=== PATIENT | female | born 1945 | race Caucasian/White ===

== ENCOUNTER → 2017-07-20 | Outpatient (CLI) | payer OTHER | LOC: FIMAGING 12:18 | PROVIDERS: ATTEND Internal Medicine | DX: Z13.820 Encounter for screening for osteoporosis (principal); M85.89 Other specified disorders of bone density and structure, multiple sites; Z78.0 Asymptomatic menopausal state ==

== ENCOUNTER → 2017-07-26 | Outpatient (CLI) | payer OTHER | LOC: FIMAGING 13:06 | PROVIDERS: ATTEND Internal Medicine | DX: Z12.31 Encounter for screening mammogram for malignant neoplasm of breast (principal) ==

== ENCOUNTER → 2018-02-11 | Outpatient (CLI) | payer OTHER | END | disposition home or self-care (01) | LOC: FLAB 11:10 | PROVIDERS: ATTEND Registered Nurse | DX: R91.8 Other nonspecific abnormal finding of lung field (principal); R61 Generalized hyperhidrosis; R53.83 Other fatigue; R63.0 Anorexia; G47.00 Insomnia, unspecified ==

== ENCOUNTER 2018-03-14 18:12 | Emergency (ER) | payer OTHER ==
--- NOTE | 2018-03-14 18:30 | EDPHY ---
General Time Seen by Provider: 03/14/18 18:29 Narrative: CLINICAL IMPRESSION: Fall, head contusion, sacrum fracture ASSESSMENT/PLAN: Patient is a 72-year-old female with a history of hypertension, hyperlipidemia, bladder incontinence and SHEILA who presents to the emergency department after sustaining a slip and fall on the ice complaining of posterior head pain, sacrum pain and left hip pain. Patient did hit her head however there was no LOC. Patient is uncomfortable appearing however not toxic-appearing. Her high sensitivity neuro examination is intact, no significant red flags. CT head reveals soft tissue contusion on the posterior occiput without evidence of skull fracture or intracranial hemorrhage. Cervical spine CT with no acute findings. Lumbar CT with chronic DDD without acute fracture or subluxation. Pelvis CT with findings suggestive of acute S4 fracture, no evidence of pelvic fracture or pelvic hematoma. Physical examination today is consistent with head contusion and sacral fracture. She had no saddle paresthesias, lower extremity numbness, tingling, major motor weakness, urinary retention or bowel/bladder incontinence. No indication for emergent MRI. There were no clinical findings to suggest skull fracture, ICH, cauda equina syndrome, epidural abscess/hematoma, epidural compression syndrome, AAA, dissection or additional emergent process. Patient was given single dose of Dilaudid and a Lidoderm patch was placed while in the ED with improvement of her pain. She is well established with her PCP and has already called to schedule follow-up. On repeat exam and prior to discharge that patient is able to ambulate independently, her mobility improved and her neurological exam was grossly normal with no focal deficit. She reports feeling better. Strict return precautions discussed- she will return for increased or unmanageable pain, new injury, new midline back pain, numbness, tingling, weakness of legs, loss of bowel or bladder control, saddle paresthesia , urinary retention, loss of bowel or bladder control, difficulty walking or for any other new, worsening or worrisome symptoms. Patient verbalizes understanding and she is in agreement with plan. DIFFERENTIAL DX: Head injury, ICH, fracture, dislocation, cauda equina, long bone injury ED COURSE: 1937: Discussed case with radiologist, CT head reveals no evidence of intracranial hemorrhage or skull fracture, soft tissue contusion along the occiput. C-spine negative for acute fracture subluxation, degenerative disc disease. Lumbar CT with severe degenerative changes however no acute findings of the lumbar spine, there is a small buckle S3-S4 consistent with an acute fracture. No evidence of pelvic fracture. 2005: Discussed case, results and plan of care with Dr. Soriano CHIEF COMPLAINT: Fall, Head injury, sacral pain, left hip pain HPI: Patient is a 72-year-old female with a significant history of hypertension, hyperlipidemia, stress incontinence and SHEILA who presents to the emergency department after sustaining a fall on the ice. Patient reports a little after 2 :00 p.m. this afternoon she slipped causing her to fall directly onto her sacrum as well as hitting her head. She did not lose consciousness. She denies being on aspirin, other antiplatelet therapy or anticoagulation. She presents complaining of pain at site of impact on posterior scalp, pain to coccyx and left hip pain. She has been able to ambulate however this does increase her pain, sitting also exacerbates her pain. She denies saddle paresthesia, motor weakness, numbness/tingling of extremities, urinary retention or loss of bowel or bladder control. She has had no severe VILLAGOMEZ, dizziness, visual changes, amnesia, vomiting or post traumatic seizure. PMH: HTN, HLP, SHEILA, stress incontinence Family History: Not contributory Social History: Denies REVIEW OF SYSTEMS: All other systems negative Constitutional: No fever, no chills, appetite change. Eyes: No discharge, vision change. ENT: No sore throat, congestion, ear pain. Cardiovascular: No chest pain, no palpitations. Respiratory: No cough, no shortness of breath. Gastrointestinal: No abdominal pain, no vomiting, diarrhea. Genitourinary: No hematuria, dysuria, flank pain, pelvic pain. Musculoskeletal: Back pain, left hip pain. No joint swelling or myalgias. Skin: No rashes, color change. Neurological: Head pain. No dizziness, weakness. PHYSICAL EXAM: General Appearance: Well-developed, uncomfortable appearing however not toxic- appearing. HENT: Normocephalic, atraumatic. Patient tender posterior occiput without open wound, hematoma crepitus or bony deformity. Bilateral external ears are normal. Bilateral tympanic membranes are normal with pearly hay reflex, no hemotympanum bilaterally. No sanches sign or raccoon eyes. Nares are clear, mucosa is pink. Oropharynx is clear, uvula is midline. There is no tonsillar enlargement or exudate. The dentition is normal. Eyes: PERRLA, no acute vision change, nystagmus, swelling, discharge, pain or photosensitivity. Conjunctiva pink, no pallor or injection. Neck: Supple, nontender, no lymphadenopathy, no midline pain, FROM, no meningismus. Respiratory: There are no retractions, lungs are clear to auscultation. Cardiac: Regular rate and rhythm, no murmurs or gallops. Gastrointestinal: Abdomen is soft, nontender, bowel sounds normal, no masses/ hernia, no rigidity, guarding or focal peritoneal findings. Neurological: Alert and oriented x 3, CN 2-12 grossly intact, normal gait no ataxia, DTR's intact, normal sensation and strength. Skin: Warm, dry, no rashes, no nodules on palpation. Musculoskeletal: Extremities are symmetrical, full range of motion, no tenderness, deformity, swelling, or erythema. Back: No step-off, palpable bony abnormality, edema, erythema or ecchymosis of the cervical, thoracic or lumbar spines. Patient is tender to palpation in the mid lumbar region as well as sacrum and coccyx, no ecchymosis or abrasions. Limited ROM of lumbar spine due to pain. 5/5 and equal strength of the UEs and LEs bilaterally including shoulder shrug. Pulses: 2+ and equal radial, DP and PT pulses bilaterally. Sensation intact and symmetric to light touch from face, UEs and LEs bilaterally. Straight leg raise negative bilaterally. Pelvis is stable, I am unable to reproduce any tenderness to palpation of left hip, full ROM. Lumbar pain L1: inner thigh sensation- no deficit L2: ADduct thigh (cross legs)- no deficit L3: Extend knee- no deficit L4: Ankle dorsiflexion- no deficit L5: Great toe extension- no deficit S1: Flex knee- no deficit S3-4: bladder/bowel function- no dysfunction HSNE- no deficit Psychiatric: Patient is oriented X 3, there is no agitation. MEDICAL DECISION MAKING: Patient was seen independently. Secondary supervising physician at time of evaluation was Dr. Soriano. Diagnosis: Head contusion, sacral fracture. New, requires workup Summary: See Assessment and Plan for summary of ED visit Clinical lab tests: N/A. Independent visualization of images, tracing, or specimens: Yes. Decision to obtain medical records or history from someone other than the patient: Yes, neighbor Review / Summarize previous medical records: Yes Discussed patient with another provider: Yes, Dr. Soriano. Patient Progress: Stable, discharge. - History Smoking Status: Never smoked - Objective Vital Signs: Initial Vital Signs Temperature (C) 36.6 C 03/14/18 18:17 Heart Rate 107 H 03/14/18 18:17 Respiratory Rate 18 03/14/18 18:17 Blood Pressure 186/83 H 03/14/18 18:17 O2 Sat (%) 93 03/14/18 18:17 O2 Delivery Mode Room Air Allergies/Adverse Reactions: Sulfa (Sulfonamide Antibiotics) Allergy (Verified 03/14/18 18:17) Home Medications: Medication Instructions Recorded Famotidine [Pepcid 20 MG (OTC)] 20 mg PO BID #30 tab 04/02/13 Simvastatin 04/02/13 diphenhydrAMINE [Benadryl 50 MG 50 mg PO Q4-6PRN PRN #30 cap 04/02/13 (OTC)] epINEPHrine [Epipen] 0.3 mg IM ONCE #2 syr 04/02/13 methylPREDNISolone [Medrol Dose 1 each PO AD #1 ea 04/02/13 Frank] Lidocaine [Lidocaine Pain Relief] 1 each TP DAILY PRN #6 adh..patch 03/14/18 Medications Given: Discontinued Medications Hydrocodone Bitart/Acetaminophen ([place] 5/325) 1 tab PO EDNOW ONE Stop: 03/14/18 20:17 Last Admin: 03/14/18 20:22 Dose: 1 tab Hydrocodone Bitart/Acetaminophen ([place] 5/325mg Prepack#6) 1 btl TAKEHOME EDNOW ONE Stop: 03/14/18 20:18 Last Admin: 03/14/18 20:24 Dose: 1 btl Hydromorphone HCl (Dilaudid) 0.5 mg IVP EDNOW ONE Stop: 03/14/18 18:40 Last Admin: 03/14/18 19:38 Dose: 0.5 mg Miscellaneous Information (Patch Removal) 1 ea TD DAILY21 JANNA Stop: 09/10/18 20:59 Last Admin: 03/14/18 21:54 Dose: 1 ea Miscellaneous Medication (Icy Hot Lidocaine/Menthol 4%/1% Patch) 1 patch TD EDNOW ONE Stop: 03/14/18 20:03 Last Admin: 03/14/18 20:25 Dose: 1 patch Ondansetron HCl (Zofran Odt) 4 mg PO EDNOW ONE Stop: 03/14/18 21:32 Last Admin: 03/14/18 21:37 Dose: 4 mg Ondansetron HCl (Zofran Odt 4 Mg Prepack#2) 1 btl TAKEHOME EDNOW ONE Stop: 03/14/18 21:32 Last Admin: 03/14/18 21:54 Dose: 1 btl Departure - Departure Disposition: Home, Routine, Self-Care Clinical Impression: Sacrum and coccyx fracture Condition: Good Instructions: Hydrocodone/Acetaminophen (By mouth), Ondansetron (By mouth), Sacral Fracture (ED) Additional Instructions: DISCHARGE INSTRUCTIONS FROM YOUR DOCTOR Thank you for visiting our emergency department today. Please keep in mind that discharge from the emergency department does not mean that there is nothing wrong - it simply means that we have not identified an emergency condition that requires further evaluation or treatment in the hospital. You should always plan to follow up with primary care for re-evaluation of your condition in the next 2-[address], C-spine CT were both negative for acute findings. Your lumbar CT revealed no evidence of lumbar fracture. Your pelvis CT revealed an acute fracture of S4, no pelvic fracture identified. You have been prescribed [place] which is a narcotic. Please do not drive or operate machinery while taking this medication as it may make you drowsy. It may also be habit forming. This medication can also cause constipation, recommend taking 100 mg of Colace twice daily while taking this medication. This medication also contains Tylenol, please do not take other Tylenol containing products with this medication. When you are not taking [place] in for less severe pain you may take Tylenol, recommend 500-1000 mg every 6-8 hours. Do not exceed 3000 mg in a 24 hr period. It is important that you cushion your buttocks when you sit, I recommend you purchasing a doughnut pillow for comfort. Rest. Avoid lifting greater than 10-15 pounds. Avoid twisting or prolonged sitting. Movement and gentle walking is good for your back. Try to walk for 15-10 minutes on an even surface 3 or 4 times a day as tolerated and increase gentle exercise as your back improves. Salonpas is a topical pain patch, apply this if this helps you. You may purchase [id number] to pharmacy, follow instructions on the packaging. Apply ice to the area that hurts you most, 20 min on and 20 min off. People present with illnesses and injuries in different ways, and it is always possible that we have missed something. You may always return for re-evaluation if symptoms worsen or if they are not improving or if you develop new/different symptoms. Return for increased or unmanageable pain, new injury, new midline back pain, numbness, tingling, weakness of your legs, loss of bowel or bladder control, inability to urinate, burning or pain with urination, blood in the urine, fever , chills, abdominal pain, vomiting, difficulty walking, dizziness, fainting, chest pain, shortness of breath, neck pain, neck stiffness, other site of back pain, calf pain, leg redness or swelling, or for any other new, worsening or worrisome symptoms. Again, thank you for choosing our emergency department. We hope that you feel better. Referrals: Bertha Whittaker MD [Primary Care Provider] - 1 day without fail Prescriptions: Lidocaine [Lidocaine Pain Relief] 1 each TP DAILY PRN #6 adh..patch PRN Reason: Pain, Moderate
[2018-03-14] MEDS ORDERED: HYDROmorphONE/DILAUDID 2 MG/ML INJ IVP ONE (18:39)
[2018-03-14] MEDS ORDERED: LIDOCAINE 4%/MENTHOL 1% PATCH TD ONE (20:02)
[2018-03-14] MEDS ORDERED: HYDROCODONE/APAP 5/325 TAB PO ONE (20:16)
[2018-03-14] MEDS ORDERED: HYDROCOD/APAP 5/325 PREPACK#6 BTL TAKEHOME ONE (20:17)
[2018-03-14 20:35] VITALS: BP 167/79
[2018-03-14] MEDS ORDERED: PATCH REMOVAL 1 EA PATCH TD SCH (21:00)
[2018-03-14] MEDS ORDERED: ONDANSETRON 4MG PREPACK#2 BTL TAKEHOME ONE (21:31)
[2018-03-14] MEDS ORDERED: ONDANSETRON DISINTEGRATING 4 MG TAB PO ONE (21:31)
== END 2018-03-14 21:58 | disposition home or self-care (01) ==
DX: S32.19XA Other fracture of sacrum, initial encounter for closed fracture (principal); S00.03XA Contusion of scalp, initial encounter; W00.0XXA Fall on same level due to ice and snow, initial encounter; M48.02 Spinal stenosis, cervical region; M50.30 Other cervical disc degeneration, unspecified cervical region; I10 Essential (primary) hypertension; E78.5 Hyperlipidemia, unspecified; G47.33 Obstructive sleep apnea (adult) (pediatric); N39.3 Stress incontinence (female) (male); Z88.2 Allergy status to sulfonamides
CPT/HCPCS: 70450; 72125; 72131; 72192; 96374; 99285; J1170

== ENCOUNTER 2018-06-06 12:41 | Day surgery (SDC) | payer OTHER ==
[2018-06-06 12:58] VITALS: BP 132/93
--- NOTE | 2018-06-06 13:40 | EDPHY ---
H & P Stated Complaint: sent from [facility] Seen by Provider: 06/06/18 13:02 HPI/ROS: CHIEF COMPLAINT: Chest pain HISTORY OF PRESENT ILLNESS: 72-year-old female with hypertension and hyperlipidemia presents with chest pain. He several month history exertional shortness of breath and chest pressure. The chest discomfort usually resolves when she stops exercising. However the chest discomfort also occurs randomly. ETT stress test today revealed ST segment depression and chest pain after 4 min of exertion. Plan is for cardiac catheterization this afternoon. REVIEW OF SYSTEMS: complete 10 point ROS reviewed and is negative except for the noted elements in the HPI - Personal History Current Tetanus/Diphtheria Vaccine: Yes Current Tetanus Diphtheria and Acellular Pertussis (TDAP): Yes - Medical/Surgical History Hx Asthma: No Hx Chronic Respiratory Disease: No Hx Diabetes: No Hx Cardiac Disease: No Hx Renal Disease: No Hx Cirrhosis: No Hx Alcoholism: No Hx HIV/AIDS: No Hx Splenectomy or Spleen Trauma: No Other PMH: R hip replace, L4-5 Sx, - Social History Smoking Status: Never smoked - Physical Exam Exam: General Appearance: Alert, pleasant Eyes: Pupils equal and round, no conjunctival pallor or injection ENT, Mouth: Mucous membranes moist Neck: Normal inspection Respiratory: Lungs are clear to auscultation Cardiovascular: Regular rate and rhythm Gastrointestinal: Abdomen is soft and nontender Neurological: A&O, nonfocal, normal gait Skin: Warm and dry Extremities: Nontender, no pedal edema Psychiatric: Mood and affect normal Constitutional: Initial Vital Signs Temperature (C) 36.8 C 06/06/18 12:56 Heart Rate 77 06/06/18 12:56 Respiratory Rate 16 06/06/18 12:56 Blood Pressure 132/93 H 06/06/18 12:56 O2 Sat (%) 96 06/06/18 12:56 Allergies/Adverse Reactions: Sulfa (Sulfonamide Antibiotics) Allergy (Verified 03/14/18 18:17) Home Medications: Medication Instructions Recorded Famotidine [Pepcid 20 MG (OTC)] 20 mg PO BID #30 tab 04/02/13 Simvastatin 04/02/13 diphenhydrAMINE [Benadryl 50 MG 50 mg PO Q4-6PRN PRN #30 cap 04/02/13 (OTC)] epINEPHrine [Epipen] 0.3 mg IM ONCE #2 syr 04/02/13 methylPREDNISolone [Medrol Dose 1 each PO AD #1 ea 04/02/13 Frank] Lidocaine [Lidocaine Pain Relief] 1 each TP DAILY PRN #6 adh..patch 03/14/18 Medical Decision Making ED Course/Re-evaluation: This patient presents with chest pain and abnormal stress test. She was asymptomatic throughout her emergency department stay. EKG from prior to arrival reviewed and reveals no evidence of ischemia or dysrhythmia. Troponin is normal. She was seen by Dr. Frankel in the ED. Went directly to the cardiac catheterization lab. Differential Diagnosis: Differential diagnosis includes though it is not limited to pneumonia, pneumothorax, pulmonary embolism, aortic dissection, pericarditis, acute coronary syndrome. - Data Points Laboratory Results: Laboratory Results 06/06/18 13:15 06/06/18 06/06/18 06/06/18 13:21 13:15 13:15 WBC RBC Hgb Hct MCV MCH MCHC RDW Plt Count MPV Neut % (Auto) Lymph % (Auto) Luna % (Auto) Eos % (Auto) Baso % (Auto) Nucleat RBC Rel Count Absolute Neuts (auto) Absolute Lymphs (auto) Absolute Monos (auto) Absolute Eos (auto) Absolute Basos (auto) Absolute Nucleated RBC Immature Gran % Immature Gran # PT 12.0 SEC SEC (12.0-15.0) INR 0.92 (0.83-1.16) Sodium 141 mEq/L mEq/L (135-145) Potassium 4.2 mEq/L mEq/L (3.5-5.2) Chloride 108 mEq/L mEq/L (97-110) Carbon Dioxide 20 mEq/l L mEq/l (22-31) Anion Gap 13 mEq/L mEq/L (6-14) BUN 11 mg/dL mg/dL (7-23) Creatinine 0.6 mg/dL mg/dL (0.6-1.0) Estimated GFR > 60 Glucose 97 mg/dL mg/dL (70-100) Calcium 10.0 mg/dL mg/dL (8.5-10.4) Total Bilirubin 0.7 mg/dL mg/dL (0.1-1.4) AST 33 IU/L IU/L (14-46) ALT 41 IU/L IU/L (9-52) Alkaline Phosphatase 98 IU/L IU/L (38-126) POC Troponin I 0.00 ng/mL ng/mL (0.00-0.08) Total Protein 8.1 g/dL g/dL (6.3-8.2) Albumin 5.0 g/dL g/dL (3.5-5.0) 06/06/18 13:15 WBC Pending RBC Pending Hgb Pending Hct Pending MCV Pending MCH Pending MCHC Pending RDW Pending Plt Count Pending MPV Pending Neut % (Auto) Pending Lymph % (Auto) Pending Luna % (Auto) Pending Eos % (Auto) Pending Baso % (Auto) Pending Nucleat RBC Rel Count Pending Absolute Neuts (auto) Pending Absolute Lymphs (auto) Pending Absolute Monos (auto) Pending Absolute Eos (auto) Pending Absolute Basos (auto) Pending Absolute Nucleated RBC Pending Immature Gran % Pending Immature Gran # Pending PT INR Sodium Potassium Chloride Carbon Dioxide Anion Gap BUN Creatinine Estimated GFR Glucose Calcium Total Bilirubin AST ALT Alkaline Phosphatase POC Troponin I Total Protein Albumin Point of Care Test Results: Chemistry 06/06/18 13:21 POC Troponin I 0.00 ng/mL ng/mL (0.00-0.08) Departure - Departure Disposition: To OP Cath/Surgery Clinical Impression: Chest pain Qualifiers: Chest pain type: precordial pain Qualified Code(s): R07.2 - Precordial pain Condition: Fair Referrals: Patient,NotPresent [Primary Care Provider] - As per Instructions
[2018-06-06 13:58] LABS: INR 0.92 (0.83-1.16)
[2018-06-06] MEDS ORDERED: LIDOCAINE 1% 300 MG/30 ML SDV ONE (14:06)
[2018-06-06] MEDS ORDERED: MIDAZOLAM 2 MG/2 ML VIAL ONE ×2 (14:07)
[2018-06-06] MEDS ORDERED: fentaNYL 100 MCG/2 ML INJ ONE (14:07)
[2018-06-06] MEDS ORDERED: IOPAMIDOL (ISOVUE-370) 150 ML BTL IV ONE (14:07)
[2018-06-06] MEDS ORDERED: ASPIRIN 81 MG CHEWABLE TAB ONE (14:34)
--- NOTE | 2018-06-06 14:52 | CPEKG ---
Test Reason : OPEN Blood Pressure : / mmHG Vent. Rate : 081 BPM Atrial Rate : 082 BPM P-R Int : 158 ms QRS Dur : 076 ms QT Int : 387 ms P-R-T Axes : 024 011 -14 degrees QTc Int : 450 ms Sinus rhythm Probable left atrial enlargement Left ventricular hypertrophy Borderline T abnormalities, inferior leads Confirmed by Yesi Mendez ([id number]) on 06/06/2018 2:51:43 PM Referred By: YESI MENDEZ Confirmed By:Yesi Mendez
[2018-06-06 15:28] LABS: PLATELET COUNT 287 10^3/uL (150-400)
--- NOTE | 2018-06-06 21:40 | CPIP ---
[f rep st] INVASIVE CARDIAC PROCEDURE DATE OF PROCEDURE: 06/06/2018 PROCEDURE: 1. Coronary angiography. 2. Left ventriculography. 3. Right heart catheterization. INDICATION: 1. Dyspnea. 2. Chest pain concerning for an anginal equivalent. 3. Abnormal exercise tolerance test. ACCESS: Patient was prepped and draped in sterile fashion. 1% lidocaine was used to anesthetize the right inguinal region. A 6-[place] introducer sheath was placed selectively in the right common femo ral artery via modified Seldinger technique. A 7-[place] introducer sheath was placed selectively in the right common femoral vein via modified Seldinger technique. CORONARY ANGIOGRAPHY: A 6-[place] JL4 was advanced to left main coronary artery and images obtained. The left main coronary artery bifurcated into an LAD and circumflex coronary arteries. The left edwin n coronary artery appeared free of any significant disease. The left anterior descending coronary ar lenny gave rise to 2 prominent diagonal branches. The left anterior descending coronary artery had mi ld diffuse disease throughout. In the mid 1 segment of the vessel, there was a discrete 20% stenosis present. In the mid 2 segment, there was a long segmental 30% stenosis present. The diagonal arter ies were free of any significant disease. The circumflex coronary artery was a moderate-sized vessel . The circumflex coronary artery had mild luminal irregularities throughout. There was no stenosis greater than 10%. The circumflex coronary artery gave rise to 2 OM branches. The OM branches were f ree of any significant disease. A 6-[place] JR4 was advanced to the right coronary artery and images obtained. The right coronary artery was a large vessel. The right coronary artery is dominant. The right coronary artery had sequential 20% stenosis in the mid vessel. LEFT VENTRICULOGRAPHY: A 6-[place] pigtail catheter was advanced in the left ventricle and images obt ained. Left ventricle is normal size and normal systolic function. Estimated ejection fraction 65%. RIGHT HEART CATHETERIZATION: The Ramona-Rossi catheter was advanced in the right atrium and pressure an d sat obtained. The right atrial pressure was 4 mmHg. The saturation was 83.2. Catheter was then a dvanced in the right ventricle and pressure and sat obtained. The right ventricular pressure was 43/ 7 and the saturation was 81.2%. Catheter was then advanced in the pulmonary artery position and pres sure obtained. The pulmonary artery pressure was 35 mmHg over 12 mmHg with a mean pressure of 21 mmH g. The pulmonary artery saturation was 81.9%. Catheter was then advanced in the wedge position and pressure obtained. Pulmonary capillary wedge pressure was 12 mmHg. Catheter was used to obtain an I VC sat as well as an SVC sat. The IVC sat was 84.4. The SVC sat was 82.8. Cardiac output was 5.34. Cardiac index 3.13. COMPLICATIONS: None. CONCLUSIONS: 1. Mild coronary artery disease without flow limitation. 2. Normal left ventricular size and systolic function. 3. No evidence of pulmonary hypertension with a mean pulmonary artery pressure of 21 mmHg. 4. Normal pulmonary capillary wedge pressure of 12 mmHg. /[id number]/MODL
== END 2018-06-06 18:50 | disposition home or self-care (01) ==
LOC: FIMAGING 12:41 → EDSTATUS 12:54 → UNDOADMOB 15:13 → F3N 15:13 → FCATH 15:13 → UNDODISOB 18:50
PROVIDERS: ATTEND Internal Medicine Cardiovascular Disease
PROC: 4A023N8 Measurement of Cardiac Sampling and Pressure, Bilateral, Percutaneous Approach (ICD-10-PCS; principal; 2018-06-06)
PROC: B2151ZZ Fluoroscopy of Left Heart using Low Osmolar Contrast (ICD-10-PCS; principal; 2018-06-06)
PROC: B2111ZZ Fluoroscopy of Multiple Coronary Arteries using Low Osmolar Contrast (ICD-10-PCS; principal; 2018-06-06)
DX: R07.9 Chest pain, unspecified (principal); R06.09 Other forms of dyspnea; R94.39 Abnormal result of other cardiovascular function study
CPT/HCPCS: 84484-ER; C1760; J1644; J2250; J3010; Q9967